=== PATIENT | male | born 1990 | race Caucasian/White ===

== ENCOUNTER 2022-01-31 00:31 | Emergency (ER) | payer OTHER ==
[2022-01-31] MEDS ORDERED: KEFLEX250 MG PO (01:18)
== END 2022-01-31 02:08 | disposition home or self-care (01) ==
LOC: FER 00:31
DX: S92.521A Displaced fracture of middle phalanx of right lesser toe(s), initial encounter for closed fracture (principal); S92.531A Displaced fracture of distal phalanx of right lesser toe(s), initial encounter for closed fracture; E11.9 Type 2 diabetes mellitus without complications; Z23 Encounter for immunization; Z79.84 Long term (current) use of oral hypoglycemic drugs; Z79.4 Long term (current) use of insulin; W24.0XXA Contact with lifting devices, not elsewhere classified, initial encounter; Y92.89 Other specified places as the place of occurrence of the external cause; Y99.0 Civilian activity done for income or pay
CPT/HCPCS: 73630; 90471; 90715